=== PATIENT | male | born 2000 | race Caucasian/White ===

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

== ENCOUNTER 2018-04-26 10:24 | Emergency (ER) | payer OTHER ==
[~2018-04-26] VITALS: Ht 167.6 cm; Wt 86.2 kg
[2018-04-26 10:24] VITALS: BP 129/77
== END 2018-04-26 11:25 | disposition home or self-care (01) ==
LOC: ER 10:26
DX: S62.306A Unspecified fracture of fifth metacarpal bone, right hand, initial encounter for closed fracture (principal); F10.10 Alcohol abuse, uncomplicated; W22.8XXA Striking against or struck by other objects, initial encounter; Y93.H3 Activity, building and construction; Y92.89 Other specified places as the place of occurrence of the external cause; Y99.0 Civilian activity done for income or pay; Y90.9 Presence of alcohol in blood, level not specified
CPT/HCPCS: 29125; 73130; 99284; A4606; Z7610

== ENCOUNTER 2019-06-08 17:40 | Emergency (ER) | payer OTHER ==
[~2019-06-08] VITALS: Ht 167.6 cm; Wt 90.7 kg
--- NOTE | 2019-06-08 17:50 | NUR ---
STEPPED ON A BROKEN BOTTLE, POSS FB ON BOTTOM OF RT FOOT. NEED TDAP. AA/OX4, BREATHING EVEN AND UNLABORED, NO SOB NOTED, RIGHT FOOT NOTED WITH LACERATION, NO BLEEDING NOTED AT THIS TIME. KEPT PATIENT COMFORTABLE, NEEDS ATTENDED, WILL MONITOR.
[2019-06-08 18:22] VITALS: BP 145/85
[2019-06-08] MEDS ORDERED: LIDOCAINE 1%-EPI 1:100,000 20 ML VIAL ONE (18:46)
[2019-06-08] MEDS ORDERED: TDAP [DIPH/PERTUSSIS/TET] 0.5 ML VIAL IM ONE ×2 (18:46→19:00)
[2019-06-08] MEDS ORDERED: LIDOCAINE 1%-EPI 1:100,000 20 ML VIAL TP ONE (19:00)
--- NOTE | 2019-06-08 21:18 | NUR ---
PT LEFT WITHOUT DISCHARGE INSTRUCTIONS.
== END 2019-06-08 22:22 | disposition home or self-care (01) ==
LOC: ER 17:42
DX: S90.851A Superficial foreign body, right foot, initial encounter (principal); Z98.890 Other specified postprocedural states; W22.8XXA Striking against or struck by other objects, initial encounter; Y93.89 Activity, other specified; Y92.89 Other specified places as the place of occurrence of the external cause; Y99.8 Other external cause status
CPT/HCPCS: 10120; 73620; 90471; 90715; 99284; A6403 ×2; J3490

== ENCOUNTER 2023-07-01 16:38 | Emergency (ER) | payer OTHER ==
[~2023-07-01] VITALS: Ht 167.6 cm; Wt 104.3 kg
[2023-07-01] MEDS ORDERED: KETOROLAC TROMETHAMINE INJ 60 MG/2 ML VIAL IM ONE (17:30)
[2023-07-01] MEDS ORDERED: HYDROCODONE/APAP 5/325MG TABLET PO ONE (17:30)
[2023-07-01] MEDS ORDERED: HYDROCODONE/APAP 5/325MG TABLET ONE (17:31)
[2023-07-01] MEDS ORDERED: KETOROLAC TROMETHAMINE INJ 30 MG/ML VIAL ONE (17:31)
[2023-07-01] MEDS ORDERED: HYDR-3976 PO (17:59)
[2023-07-01] MEDS ORDERED: IBUP-1953 PO (17:59)
[2023-07-01 18:05] VITALS: BP 136/71; TEMP 97.8; O2SAT 100
== END 2023-07-01 18:05 | disposition home or self-care (01) ==
LOC: ER 16:52
DX: S42.011A Anterior displaced fracture of sternal end of right clavicle, initial encounter for closed fracture (principal); Z98.890 Other specified postprocedural states; W22.8XXA Striking against or struck by other objects, initial encounter; Y93.89 Activity, other specified; Y92.89 Other specified places as the place of occurrence of the external cause; Y99.8 Other external cause status
CPT/HCPCS: 99283; 96372; 73000; J1885